=== PATIENT | female | born 1965 | race Caucasian/White ===

== ENCOUNTER 2017-12-26 05:45 | Day surgery (SDC) | payer OTHER ==
[~2017-12-26 05:45] MED LIST: CYMBALTA60 MG PO; LOSARTAN-HCTZ1 EAC2 PO; OSTERA TABLET1 EACH PO; PRAVASTATIN SOD20 MG PO; SYNTHROID50 MCG PO
[2017-12-26] MEDS ORDERED: NAPROXEN SODIU550 M1 PO (08:29)
== END 2017-12-26 11:25 | disposition home or self-care (01) ==
LOC: CIR.AMB 05:45
DX: N84.0 Polyp of corpus uteri (principal)

== ENCOUNTER 2020-05-12 08:01 | Outpatient (CLI) | payer OTHER ==
[~2020-05-12 08:01] MED LIST changes: +NAPROXEN SODIU550 M1 PO
== END 2020-05-12 08:13 | disposition home or self-care (01) ==
LOC: SONOGRAMA 08:01
PROVIDERS: ATTEND Pathology Anatomic Pathology & Clinical Pathology
DX: E04.2 Nontoxic multinodular goiter (principal)